=== PATIENT | male | born 1990 | race Caucasian/White ===

== ENCOUNTER 2020-09-30 17:07 | Emergency (ER) | payer OTHER ==
[~2020-09-30] VITALS: Ht 182.9 cm; Wt 70.0 kg
[~2020-09-30 17:07] MED LIST: BUPR100T6; TRAZ-175
[2020-09-30 17:10] VITALS: BP 108/51
--- NOTE | 2020-09-30 17:41 | NUR ---
ON ARRIVAL, PT PLACED ON ALL ROOM MONITORING. PT A/O X 3, REFUSING IV AT THIS TIME. PT STATES HE WAS JUST GETTING READY FOR A GOOD NAP AND DIDN'T WANT TO COME TO HOSPITAL. 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 OXYGEN PLACED AT 2LITERS VIA NC FOR WHEN PT SLEEPING, PULSE OX OCCASIONALLY DIPS TO 88%. SNACKS, WATER AND ICE PROVIDED TO PT. PT DRINKING WATER, SLEEPING INTERMITTENTLY.
--- NOTE | 2020-09-30 19:37 | NUR ---
THIS RN OUT OF TRAUMA ROOM ASSISTING WITH CODE. PER SUKHJINDER RN ASSUMING CARE OF MY PATIENTS, PT NOT IN ROOM AT 1845. PT NOT OBSERVED LEAVING ED BUT NONE OF PT'S BELONGINGS IN ROOM. PT DISCHARGED ELOPED.
== END 2020-09-30 19:43 | disposition left against medical advice (07) ==
LOC: ED 19:30
DX: F11.10 Opioid abuse, uncomplicated (principal); E86.0 Dehydration; F15.10 Other stimulant abuse, uncomplicated; Z72.9 Problem related to lifestyle, unspecified; R00.0 Tachycardia, unspecified
CPT/HCPCS: 99283